=== PATIENT | male | born 1995 | race Caucasian/White ===

== ENCOUNTER 2021-11-19 23:02 | Emergency (ER) | payer BC ==
[2021-11-20] MEDS ORDERED: Ketorolac Tromethamine 30 MG/ML VIAL ONE (00:15)
== END 2021-11-20 00:45 | disposition home or self-care (01) ==
LOC: ERS 23:02
DX: G43.009 Migraine without aura, not intractable, without status migrainosus (principal)
CPT/HCPCS: 96372; 99283; J1885

== ENCOUNTER 2022-02-19 15:41 | Emergency (ER) | payer BC ==
[2022-02-19] MEDS ORDERED: Acetaminophen 500 MG TAB ONE (16:18)
== END 2022-02-19 16:20 | disposition home or self-care (01) ==
LOC: ERS 15:41
DX: M77.12 Lateral epicondylitis, left elbow (principal); R04.0 Epistaxis
CPT/HCPCS: 99283

== ENCOUNTER 2022-02-26 21:37 | Emergency (ER) | payer BC | END 2022-02-26 23:35 | disposition home or self-care (01) | LOC: ERS 21:37 | DX: J20.9 Acute bronchitis, unspecified (principal); R07.89 Other chest pain | CPT/HCPCS: 71045; 93005 ==

== ENCOUNTER 2022-05-04 22:15 | Emergency (ER) | payer BC ==
[2022-05-04] MEDS ORDERED: Acetaminophen 500 MG TAB ONE (23:08)
[2022-05-04] MEDS ORDERED: Ondansetron ODT 4 MG TAB ONE (23:08)
[2022-05-04] MEDS ORDERED: Dicyclomine 20 MG TAB ONE (23:13)
== END 2022-05-05 00:53 | disposition home or self-care (01) ==
LOC: ERS 22:15
DX: B34.9 Viral infection, unspecified (principal); Z20.822 Contact with and (suspected) exposure to COVID-19
CPT/HCPCS: 87804; 99284; Q0162; U0003; U0005

== ENCOUNTER 2023-11-26 21:26 | Emergency (ER) | payer BC ==
[2023-11-26] MEDS ORDERED: Acetaminophen 325 MG TAB ONE (21:56)
[2023-11-26] MEDS ORDERED: Ketorolac Tromethamine 30 MG (1 mL) VIAL ONE (21:56)
== END 2023-11-26 22:12 | disposition home or self-care (01) ==
LOC: ERS 21:26
DX: G44.209 Tension-type headache, unspecified, not intractable (principal); R29.898 Other symptoms and signs involving the musculoskeletal system
CPT/HCPCS: 96372; 99283; J1885

== ENCOUNTER 2025-10-19 21:58 | Emergency (ER) | payer BC, SELFPAY | END 2025-10-19 23:44 | disposition home or self-care (01) | LOC: ERS 21:58 | DX: F41.9 Anxiety disorder, unspecified (principal) | CPT/HCPCS: 99283 ==